=== PATIENT | male | born 1960 | race Caucasian/White ===

== ENCOUNTER 2024-04-17 21:02 | Emergency (ER) | payer SELFPAY ==
[2024-04-17 21:04] VITALS: BP 154/102
--- NOTE | 2024-04-17 22:33 | ED.GENMED ---
History of Present Illness
General
Chief Complaint: Musculo-Skeletal Complaint
Source: patient
Exam Limitations: none
Time Seen by Provider: 04/17/24 21:11
History of Present Illness
History of Present Illness:
Pleasant 64-year-old male presents with right thumb pain after tripping on a plastic gate at work. He fell on his outstretched hand. Denies any other issue. Request a urine drug screen as a requirement for Worker's Comp. at work.
Phy Exam
General Physical Exam
General Presentation: well appearing and mild distress
General age: appears stated age
General Skin: warm and dry
General Habitus: normal
General Mental: alert
General Hydration: appears well hydrated
Cardiovascular Exam
Cardiovascular Exam: regular rate/rhythm and no edema
Pulmonary Exam
Pulmonary Exam: lungs clear, no respiratory distress and no cough
Neurological Exam
Neurological Exam: alert, oriented x3, no motor deficits and speech normal
Musculoskeletal Exam
Musculoskeletal Exam: joint swelling (Right thumb) and neuro vasc intact
Skin Exam
Skin Exam: normal color and warm/dry
Course
Orders/Labs/Results
Orders:
Orders
04/17/24 21:07
Thumb/Finger 2 View Rt [CR Finger(s)/thumb Min 2 Vw Rt] Urgent
Comment:
Reason For Exam: FALL WITH DEFORMITY
04/17/24 22:50
Drug Screen, Urine [Urine Drug Abuse Screen] Urgent
Date Specimen was Collected: 04/17/24
Time Specimen was Collected: 22:47
04/17/24 22:54
Hand, Right 3 View [CR Hand - Right Min 3 Views] Urgent
Comment:
Reason For Exam: post reduction
04/17/24 22:55
Aluminium Finger Splint Right ONCE
Vital Signs
Initial and Last Documented VS:
Initial Vital Signs
Temp Pulse Resp BP Pulse Ox
99 F 88 22 154/102 96
04/17/24 21:04 04/17/24 21:04 04/17/24 21:04 04/17/24 21:04 04/17/24 21:04
Last Documented Vital Signs
Temp Pulse Resp BP Pulse Ox
99 F 82 14 132/81 96
04/17/24 21:04 04/17/24 22:37 04/17/24 22:37 04/17/24 22:37 04/17/24 22:37
*Radiology
Radiology exam reviewed: preliminary read by ED provider (Initial x-ray shows thumb that is dislocated.)
*Pulse Oximetry
Patient hypoxic: no
*Critical Care Note
Total Time (30-74mins, 75-104mins- exclusive of procedures): Not Applicable
Update Note
Update Note:
04/17/2024 2255 PM: Using 1% lidocaine without epinephrine, a digital block was performed. I also performed an intra-articular block. When appropriate analgesia and anesthesia was established, I was able to distract and reduce the dislocated thumb.
Patient tolerated procedure well. Follow-up films pending.
ED Attending Note
-
Portions of this chart may have been created with voice recognition software.� Occasional wrong word or��sound alike� substitutions may have occurred due to the inherent limitations of voice recognition software.
Discharge Plan
Departure
Patient Disposition: Home (Routine Discharge)
Date of Disposition: 04/17/24
Time of Disposition: 23:22
Patient with high blood pressure during this ER visit?: Yes
Condition: Good
Discharge Problem:
Dislocated finger, Abrasion
Instructions: Muscle and Bone Pain (DC), Finger Dislocation (DC), Using Cold for Pain, Splint Care ED
Referrals:
[facility] [Outside]
Rogelio Valderrama MD [Active] - Next open appointment
Jose Guadalupe Sommers MD [Family Provider] -
Activity Restrictions/Additional Instructions:
Please follow-up with your work assigned Worker's Compensation physician
It was a pleasure meeting you and taking part in your care. We hope for your continued healing and wellness.
Please read discharge instructions in their entirety. However, they are for general education and may not describe your exact diagnosis at discharge. Information on your ER visit and medical conditions were discussed with you along with appropriate
follow up information...
If indicated, please take your medications as instructed and indicated on discharge paperwork.
Please schedule a follow up appointment as directed. Call to schedule an appointment
Please return to the emergency department with ANY change in, persisting, or worsening of symptoms. If any of your symptoms do not improve, or persist, or become more severe within 6-12 hours, please return to the emergency department for further
care.
Please return to the emergency department if you develop a headache, neck pain/stiffness, fever greater than 100.4F, chest pain, shortness of breath, persistent nausea, vomiting, slurred speech, difficulty walking, numbness/tingling, weakness, signs
of infection or any other symptoms that are worrisome to you.
If you have any questions or concerns please do not hesitate to call the Hospital at or E-mail me directly at [email or web address]
Interventions
Interventions:
*Risk Screen - Suicide Last Done: 04/17/24 21:04
*General Assessment Last Done: 04/17/24 22:05
*Neglect/Abuse Screening Last Done: 04/17/24 21:04
*ED COVID-19 Vaccine History Last Done: 04/17/24 22:05
ED-Musculoskeletal Assessment Last Done: 04/17/24 22:05
Discharge Date and Time
Print Language: BELARUSIAN
[2024-04-17 22:37] VITALS: BP 132/81; BMI 22.9
[2024-04-17 23:05] LABS: Amphetamines Negative (Negative); Barbiturates Negative (Negative); Benzodiazepines Negative (Negative); Buprenorphine Negative (Negative); Cocaine Negative (Negative); Marijuana Negative (Negative); Methadone Negative (Negative); Methamphetamines Negative (Negative); Opiates Negative (Negative); Phencyclidine Negative (Negative); Tricyclic Antidepressants Negative (Negative)
[2024-04-17 23:38] VITALS: BP 128/69
== END 2024-04-17 23:38 | disposition home or self-care (01) ==
LOC: EMR 21:02
PROVIDERS: EMERGENCY PHYSICIAN Student in an Organized Health Care Education/Training Program; FAMILY PHYSICIAN Family Medicine
DX: S63.114A Dislocation of metacarpophalangeal joint of right thumb, initial encounter (principal); S60.311A Abrasion of right thumb, initial encounter; W18.09XA Striking against other object with subsequent fall, initial encounter; Y99.0 Civilian activity done for income or pay
CPT/HCPCS: 99284; 26700; 73130; 73140; 80306